=== PATIENT | male | born 1970 | race Caucasian/White ===

== ENCOUNTER 2021-11-22 21:45 | Observation (INO) ==
[2021-11-22 22:17] LABS: Basophils # (auto) 0.04 K/uL (0-0.2); Basophils % (auto) 0.6 %; Eosinophils # (auto) 0.35 K/uL (0-0.50); Eosinophils % (auto) 5.2 %; Hematocrit (blood only) 37.3 % (40.1-51.0); Hemoglobin 12.6 g/dl (14.0-18.0); Immature Granulocytes # (auto) 0.01 K/uL (0.00-0.02); Immature Granulocytes % (auto) 0.1 %; Lymphocytes # (auto) 2.34 K/uL (1.2-3.4); Mean Corpuscular Hemoglobin 29.1 pg (25.0-34.0); Mean Corpuscular Hgb Conc 33.8 g/dL (32.0-36.0); Mean Corpuscular Volume 86.1 fL (80.0-100.0); Mean Platelet Volume 10.2 fL (9.4-12.4); Monocytes # (auto) 0.64 K/uL (0.24-0.82); Monocytes % (auto) 9.6 %; Neutrophils # (auto) 3.31 K/uL (1.4-6.5); Neutrophils % (auto) 49.5 %; Platelet Count 261 K/uL (130-400); RDW Coefficient of Variation 12.5 % (11.5-14.5); RDW Standard Deviation 39.3 fL (36.4-46.3); Red Blood Count 4.33 M/uL (4.63-6.08); White Blood Count 6.69 K/ul (4.8-10.8)
[2021-11-22 22:32] LABS: Partial Thromboplastin Ratio 0.9; Partial Thromboplastin Time 25.7 Seconds (21.0-31.0)
[2021-11-22 22:36] LABS: Alanine Aminotransferase 11 U/L (7-52); Albumin Globulin Ratio 1.5 (0.9-2); Albumin Level 4.2 gm/dl (3.4-5.0); Alkaline Phosphatase 58 U/L (34-104); Anion Gap 7 (3-11); Aspartate Aminotransferase 14 U/L (13-39); BUN Creatinine Ratio 11.8 (10-20); Bilirubin,Total 0.5 mg/dl (0.2-1.0); Blood Urea Nitrogen 11 mg/dl (6-23); Carbon Dioxide 28 mmol/L (21-32); Chloride 104 mmol/L (98-107); Creatinine Clr Calc Pharmacy 101.2 ml/min; Est GFR (African American) 110.6 ml/min; Est GFR (Non-African American) 95.4 ml/min; Globulin 2.8 gm/dl (2.5-4.0); Glucose 129 mg/dl (70-99(Fasting)); Potassium 3.8 mmol/L (3.5-5.1); Sodium 139 mmol/L (136-145)
[2021-11-22 22:43] LABS: Troponin I High Sensitivity < 2.3 pg/ml (0-20)
[2021-11-23] MEDS ORDERED: OPTIRAY 300 100mL IV ONE (01:25)
[2021-11-23] MEDS ORDERED: ACETAMINOPHEN 325 MG TAB PO PRN (06:13)
[2021-11-23] MEDS ORDERED: POLYETHYLENE (MIRALAX) 17 GM PACK PO PRN (06:13)
[2021-11-23] MEDS ORDERED: NITROGLYCERIN SL 0.4 MG/TAB TAB SL PRN (06:13)
[2021-11-23] MEDS ORDERED: ALBUTEROL HFA 8 GM INHALER INH PRN (06:26)
--- NOTE | 2021-11-23 06:33 | History and Physical Report ---
DATE OF ADMISSION: 11/23/2021. CHIEF COMPLAINT: Chest pain, dyspnea on exertion. HISTORY OF PRESENT ILLNESS: This is a 51-year-old male with past medical history significant for Crohn's disease, GERD, history of left duplicated ureter, history of alopecia areata, chronic pain, major depression. Presents with chest pain going on for last 2 days, pressure-like feeling, tonight it was 8/10, currently it is still about 5/10 in severity, no radiation, it is all over the chest, also in the upper abdomen. He is getting short of breath on exertion also for the last 2 days. No cough, no fevers, no headache. He has chronic neck pain. No runny nose, no sore throat, no cough, no fevers. Has some abdominal discomfort, some nausea. He has diarrhea for last the 2 days. He has had 3 to 4 episodes of diarrhea. No blood in the stools. Watery diarrhea. Normal bladder movements. No swelling in the legs. Climbing steps is making him short of breath for the last couple of days. ALLERGIES: CODEINE, NALOXONE, GABAPENTIN, IBUPROFEN, TRAMADOL. PAST MEDICAL HISTORY: As mentioned above. PAST SURGICAL HISTORY: Abdominal surgery, left shoulder arthroscopy, colonoscopy, multiple cystoscopies with bilateral stent removal, EGDs, fragment of kidney stone via shockwave on the left ureter, cholecystectomy, cervical spinal fusion surgery, lumbar spinal fusion surgery, upper GI endoscopy. MEDICATIONS: The patient is on Tylenol p.r.n., albuterol inhalation p.r.n. buprenorphine 8 mg sublingual t.i.d., famotidine 20 mg p.o. b.i.d., Protonix 40 mg p.o. daily. FAMILY HISTORY: Significant for mother has breast cancer; father had colon polyps and heart disorder; paternal grandfather had lung cancer; paternal grandmother has diabetes; uncle had colon cancer. SOCIAL HISTORY: , no smoking, no alcohol, no drug use. REVIEW OF SYSTEMS: As per HPI. Rest of the review of systems is negative. PHYSICAL EXAMINATION: GENERAL: The patient is of moderate build, not in acute distress. VITAL SIGNS: Temperature 36.2, pulse 55, respiratory rate 12, blood pressure 112/62, oxygen 98% on room air. HEENT: Pupils equal, round and reactive to light. Oral mucosa moist. NECK: No JVD, no neck masses. CARDIOVASCULAR: S1 and S2 heard. Regular rate and rhythm. No murmur, no gallop. RESPIRATORY SYSTEM: Normal AP diameter. No accessory muscle use. No wheezing, no crackles. ABDOMEN: Soft, bowel sounds present. Mild abdominal discomfort. No guarding, no rigidity, no distention. CENTRAL NERVOUS SYSTEM: Cranial nerves II-XII grossly intact, nonfocal. EXTREMITIES: No edema, no erythema. LABORATORY DATA: WBC 6.6, hemoglobin 12.6, hematocrit 37.3, platelets 261. PT 11, INR 1, APTT 25.7. Sodium 139, potassium 3.8, chloride 104, bicarb 28, BUN 11, creatinine 0.9, serum glucose 129, calcium 9, total bilirubin 0.5, AST 14, ALT 11, alkaline phosphatase 58. Troponin I high sensitivity less than 2.3, lipase 17. SARS-CoV-2 rapid test negative. IMAGING DATA: CT of abdomen and pelvis with IV contrast, no acute abnormality. Chest x-ray, no acute findings. EKG: Poor quality data, normal sinus rhythm at a rate of 60, no significant change was found. ASSESSMENT AND PLAN: This is a 51-year-old male who presents with chest pain and dyspnea on exertion. 1. Chest pain and dyspnea on exertion going on for the last 2 days and also some diarrhea for the last 2 days. Initial workup was unremarkable. Follow serial enzymes, echo, keep him n.p.o., and consult cardiology in the a.m. for further recommendations. 2. History of chronic pain: Continue his buprenorphine. 3. Gastroesophageal reflux disease: Also has some epigastric tenderness. Continue his home Pepcid and Protonix for now. 4. Deep venous thrombosis prophylaxis: Sequential compression devices. DISPOSITION: Observation in [place] tele. PT/OT prior to discharge. Social service to help with discharge planning. Job ID: [id number] [facility]
[2021-11-23 06:57] LABS: Basophils # (auto) 0.04 K/uL (0-0.2); Basophils % (auto) 0.7 %; Eosinophils # (auto) 0.49 K/uL (0-0.50); Eosinophils % (auto) 8.1 %; Hematocrit (blood only) 37.2 % (40.1-51.0); Hemoglobin 12.1 g/dl (14.0-18.0); Immature Granulocytes # (auto) 0.01 K/uL (0.00-0.02); Immature Granulocytes % (auto) 0.2 %; Lymphocytes # (auto) 2.66 K/uL (1.2-3.4); Lymphocytes % (auto) 43.9 %; Mean Corpuscular Hemoglobin 28.2 pg (25.0-34.0); Mean Corpuscular Hgb Conc 32.5 g/dL (32.0-36.0); Mean Corpuscular Volume 86.7 fL (80.0-100.0); Mean Platelet Volume 10.1 fL (9.4-12.4); Monocytes % (auto) 9.9 %; Neutrophils # (auto) 2.26 K/uL (1.4-6.5); Neutrophils % (auto) 37.2 %; Platelet Count 234 K/uL (130-400); RDW Coefficient of Variation 12.7 % (11.5-14.5); Red Blood Count 4.29 M/uL (4.63-6.08); White Blood Count 6.06 K/ul (4.8-10.8)
[2021-11-23 07:26] LABS: Troponin I High Sensitivity < 2.3 pg/ml (0-20)
[2021-11-23 07:32] LABS: D Dimer 280 ug/L FEU (0-500)
[2021-11-23 07:36] LABS: Anion Gap 5 (3-11); BUN Creatinine Ratio 11.2 (10-20); Blood Urea Nitrogen 10 mg/dl (6-23); Calcium 8.9 mg/dl (8.5-10.1); Carbon Dioxide 30 mmol/L (21-32); Chloride 103 mmol/L (98-107); Creatinine Clr Calc Pharmacy 105.8 ml/min; Est GFR (African American) 115.6 ml/min; Est GFR (Non-African American) 99.7 ml/min; Glucose 89 mg/dl (70-99(Fasting)); Magnesium 2.2 mg/dl (1.7-2.4); Potassium 3.6 mmol/L (3.5-5.1); Sodium 138 mmol/L (136-145)
--- NOTE | 2021-11-23 07:37 | XRay Report ---
XR chest 1V portable CLINICAL HISTORY: Chest Pain TECHNIQUE: Single frontal radiograph of the chest was obtained. Comparison: Comparison is made to chest radiograph 05/13/2014 FINDINGS: Anterior cervical fixation hardware is seen. The cardiomediastinal silhouette is normal. The lungs ar e clear. No evidence of pleural effusion or pneumothorax. IMPRESSION: No acute chest disease. ACT 112: Negative or not required by law. Electronically signed by: Sukh Garcia M.D. 11/23/2021 7:36 AM
--- NOTE | 2021-11-23 08:17 | CT Scan Report ---
CT abd pelvis IV con only CLINICAL HISTORY: epigastric pain TECHNIQUE: Helical axial images of the abdomen and pelvis were obtained and displayed. Automated dose lowering techniques and/or adjustment according to patient size were utilized for this exam. This e xam was performed with intravenous contrast. CT DOSE: 415.85 mGy.cm COMPARISON: Comparison is made to CT abdomen pelvis 07/30/2014 FINDINGS: Lower chest: Bibasilar atelectasis versus scarring is seen. Liver: Unremarkable. No focal lesions are seen. Gallbladder and biliary tree: Patient is status post cholecystectomy. Physiologic prominence of the b iliary ducts is noted. Pancreas: Unremarkable, no focal lesions. Spleen: Unremarkable. Adrenals: Unremarkable. Kidneys and ureters: Incidental note is made of a duplicated renal collecting system on the left. Bladder: Unremarkable. Reproductive organs: Unremarkable. Bowel: Unremarkable appearance of the bowel. The appendix is normal. A hiatal hernia is seen. Lymph nodes Retroperitoneal: Unremarkable. Pelvic: Unremarkable. Mesenteric: Unremarkable. Peritoneum: Normal. Vessels: Unremarkable. Abdominal wall: Bilateral fat-containing inguinal hernias are seen. Bones: Posterior fixation hardware is seen spanning L4-L5. Multilevel degenerative changes are seen. IMPRESSION: No acute abnormalities are seen to explain epigastric pain. There is a small hiatal hernia. ACT 112: Negative or not required by law. Electronically signed by: Sukh Garcia M.D. 11/23/2021 8:15 AM
--- NOTE | 2021-11-23 08:57 | Emergency Department Note ---
Impression & Plan Substernal chest pain, Exertional shortness of breath [facility] Provider Note NAME: CAT VAN AGE: 51 SEX: M ARRIVES VIA: Walk-In INFORMANT: Patient and his ED PROVIDER(S): Shania Le DO CHIEF COMPLAINT: Diffuse chest pain and shortness of breath PLAN: Disposition: The [facility] Condition: Stable MEDICAL DECISION MAKING: This is a 51-year-old male patient who presents to the emergency department with diffuse chest pain and exertional shortness of breath. On physical exam, the patient had reproducible epigastric pain. CT scan of the abdomen/pelvis was es sentially unremarkable. Patient gives a very specific history of worsening exertional shortness of breath. EKG and laboratory studies were unremarkable but the patient's history was quite concerning. I discussed the case with [facility] and they will evaluate for further management and work-up. O2 saturations remained stable. Triage Nursing notes reviewed and agree with them. Additional history obtained from the patient's is at the bedside Vital Signs: reviewed and unremarkable Differential diagnosis: Pancreatitis, cardiac ischemia, cardiac dysrhythmia, COVID-19, anemia Diagnostics interpreted by me: ECG: Sinus rhythm at a rate of [address] segment elevations or signs of ischemia. No ectopy. Cardiac Monitoring: Sinus bradycardia at 52 Laboratory studies: See below Imaging studies: As per stat rad CT abdomen pelvis with contrast: No acute abnormality. No bowel obstruction or ileus. No evidence for appendicitis. No evidence for diverticulitis. No free fluid. Liver is unremarkable. Gallbladder not identified. No biliary ductal dilatation. Pancreas is unremarkable. Spleen is unremarkable. No obstructive uropathy. Kidneys are unremarkable. Urinary bladder is unremarkable. Postoperative degenerative changes of the lumbar spine Portable chest x-ray: As per my interpretation no acute pulmonary infiltrates or consolidations. HPI: 51/M arrives for evaluation of diffuse chest pain and shortness of breath. Patient has been feeling increasing chest discomfort across his chest over the past couple of days and worsening shortness of breath and lightheadedness. Last evening, the patient developed severe epigastric discomfort for the approximately 1 hour which was concerning to him. ROS: See above HPI for pertinent positives & negatives. A total of 10 systems reviewed and were otherwise negative. PAST MEDICAL HISTORY:GERD; multiple back and neck surgeries. The patient had COVID-19 in April and has been vaccinated PAST SURGICAL HISTORY:None FAMILY HISTORY:His father has hypertension and his mother has atrial fibrillation SOCIAL HISTORY:No significant alcohol use HOME MEDICATIONS:See list ALLERGIES:See list VITALS:See Below PHYSICAL EXAMINATION: HEENT: Head - normocephalic and atraumatic Pupils are equal, round, and reactive to light. Extraocular eye muscles are intact, and sclera are anicteric. Nose - moist nasal mucosa without discharge. Mouth - moist buccal mucosa. Oropharynx is nonerythematous and there is no tonsillar exudate or edema noted. Neck: Supple; no JVD, nuchal rigidity, cervical lymphadenopathy, or auscultated bruits. Heart: Bradycardic rate and regular rhythm. There is a normal S1 and S2 with no murmurs, clicks, or gallops appreciated. Lungs: Clear to auscultation bilaterally with no wheezes, rales, or rhonchi. Abdomen: Soft, mildly distended with moderate tenderness to palpation in the epigastrium, with good bowel sounds. There are no palpable pulsatile masses or hepatosplenomegaly. There is no guarding, rigidity, or rebound noted. Extremities: No evidence of cyanosis, clubbing, or edema. There are easily palpable peripheral pulses. Skin: warm and dry with good turgor and no rashes. ED COURSE: Times/Reassessments: 0020: The patient was evaluated in room C6. A complete history and physical was performed. An IV lock was initiated and labs were drawn as above. A twelve-lead EKG was obtained as described above. An order was placed for continuous cardiac monitoring. The patient was in a sinus bradycardia at a rate of 52. A portable chest x-ray was performed. The patient went for CT scan of the abdomen/pelvis which was unremarkable. I [facility] the [facility] and they will evaluate for further management. Shania Le DO Past Med/Surg History Medical History (Updated 11/23/21 @ 16:16 by Shania Le DO) Chronic back pain subutex for pain control Degenerative disc disease Eye pain Left eye pain (11/2019) > s/p unremarkable brain MRI > referred to eye doctor for further management GERD (gastroesophageal reflux disease) Hx of duodenal ulcer ~2004, no surgical intervention Kidney stones hx Osteoarthritis Ureteral duplication, left congenital 2 ureters (left side) Surgical History History of colonoscopy History of cystoscopy with stone basketing/stent History of esophagogastroduodenoscopy (EGD) History of lithotripsy S/P arthroscopy of left shoulder RCR x3 S/P cervical spinal fusion Multilevel x2 ([facility]) > "Full ROM" S/P epidural steroid injection S/P hip arthroscopy Right hip S/P lumbar spinal fusion S/P tendon repair left bicep tendon repair Family History Other No family history of adverse response to anesthesia Social History Smoking Status: Never smoker Second Hand Exposure: No; Do You Dip or Chew Tobacco: No; Tobacco Cessation Education Requested by Patient: No Hx Alcohol Use: No Hx Substance Use: No Preferred Language: Setswana Communication Ability: Effective Storekeeper Helper Required: No Beliefs That Will Affect Care: None Current Living Situation: Significant Other Current Living Situation Comment: House with chichi Jackelin Other Information That Helps Us Care for You: No Feels Safe at Home: Yes Safety Concerns: Feels Safe At This Time Assistive Devices: None Allergies Allergies Allergy/AdvReac Type Severity Reaction Status Date / Time codeine Allergy Severe Anaphylaxis Verified 11/23/21 00:08 naloxone [From Suboxone] Allergy Severe Anaphylaxis Verified 11/23/21 00:08 (see comments) gabapentin AdvReac Intermediate Vomiting, Verified 11/23/21 00:08 diarrhea ibuprofen AdvReac Intermediate Nausea/Vomi Verified 11/23/21 00:08 ting tramadol [From Ultram] AdvReac Intermediate Nausea/Vomi Verified 11/23/21 00:08 ting Home Meds Home Medications Medication Instructions Recorded Confirmed albuterol sulfate 90 mcg/actuation 1 inh inhalation QID PRN Wheezing 05/30/20 11/23/21 breath activated powder inhaler buprenorphine HCl 8 mg sublingual 8 mg sublingual TID 05/30/20 11/23/21 tablet famotidine 20 mg tablet (Pepcid) 20 mg PO BID 05/30/20 11/23/21 pantoprazole 40 mg tablet,delayed 40 mg PO QAM 05/30/20 11/23/21 release (Protonix) acetaminophen 500 mg tablet 1,000 mg PO Q6H PRN Pain 11/23/21 11/23/21 (Tylenol Extra Strength) ibuprofen 200 mg tablet 400 mg PO Q6H PRN Pain 11/23/21 11/23/21 Results & Data (ED) Vital Signs Vital Signs - 24 hr 11/22/21 21:46 11/23/21 00:07 11/23/21 00:07 Temperature 36.2 C L Temperature Source Temporal Artery Scan Pulse Rate 63 Pulse Rate from SpO2 Sensor Respiratory Rate 18 Respiratory Effort / Characteristics Non-Labored Spontaneous Respiratory Depth Normal Blood Pressure 121/71 Blood Pressure Mean 87 Blood Pressure Position Sitting Pulse Oximetry 98 Oxygen Delivery Method Room Air Room Air Room Air Sepsis Recent Fever Within 48 Hours No Sepsis New/Unexplained Change in Mental Status N/A Sepsis Action Taken by Nursing No Action Required 11/23/21 00:00 11/23/21 01:00 11/23/21 01:26 Temperature Temperature Source Pulse Rate 50 L 60 59 L Pulse Rate from SpO2 Sensor Respiratory Rate 12 13 11 L Respiratory Effort / Characteristics Respiratory Depth Blood Pressure 105/68 128/77 122/78 Blood Pressure Mean 80 94 92 Blood Pressure Position Pulse Oximetry 97 97 97 Oxygen Delivery Method Room Air Room Air Room Air Sepsis Recent Fever Within 48 Hours Sepsis New/Unexplained Change in Mental Status Sepsis Action Taken by Nursing 11/23/21 03:00 11/23/21 04:00 Temperature Temperature Source Pulse Rate 55 L 51 L Pulse Rate from SpO2 Sensor 54 L 50 L Respiratory Rate 12 13 Respiratory Effort / Characteristics Respiratory Depth Blood Pressure 112/69 97/58 L Blood Pressure Mean 83 71 Blood Pressure Position Pulse Oximetry 98 98 Oxygen Delivery Method Sepsis Recent Fever Within 48 Hours Sepsis New/Unexplained Change in Mental Status Sepsis Action Taken by Nursing Laboratory Data Result diagrams: 11/23/21 06:35 11/23/21 06:35 Lab Results 11/22/21 11/22/21 11/22/21 Range/Units 21:58 21:58 21:58 WBC 6.69 (4.8-10.8) K/ul RBC 4.33 L (4.63-6.08) M/uL Hgb 12.6 L (14.0-18.0) g/dl Hct 37.3 L (40.1-51.0) % MCV 86.1 (80.0-100.0) fL MCH 29.1 (25.0-34.0) pg MCHC 33.8 (32.0-36.0) g/dL RDW Std Deviation 39.3 (36.4-46.3) fL RDW Coeff of [place] 12.5 (11.5-14.5) % Plt Count 261 (130-400) K/uL MPV 10.2 (9.4-12.4) fL Immature Gran % (Auto) 0.1 % Neut % (Auto) 49.5 % Lymph % (Auto) 35.0 % [place] % (Auto) 9.6 % Eos % (Auto) 5.2 % Baso % (Auto) 0.6 % Neut # (Auto) 3.31 (1.4-6.5) K/uL Lymph # (Auto) 2.34 (1.2-3.4) K/uL [place] # (Auto) 0.64 (0.24-0.82) K/uL Eos # (Auto) 0.35 (0-0.50) K/uL Baso # (Auto) 0.04 (0-0.2) K/uL Immature Gran # (Auto) 0.01 (0.00-0.02) K/uL PT 11.0 (9.0-12.0) Seconds INR 1.0 (0.9-1.1) APTT 25.7 (21.0-31.0) Seconds PTT Ratio 0.9 Sodium 139 (136-145) mmol/L Potassium 3.8 (3.5-5.1) mmol/L Chloride 104 (98-107) mmol/L Carbon Dioxide 28 (21-32) mmol/L Anion Gap 7 (3-11) BUN 11 (6-23) mg/dl Creatinine 0.93 (0.6-1.4) mg/dl Est Cr Clr Drug Dosing 101.2 ml/min Est GFR ( Amer) 110.6 ml/min Est GFR (Non-Af Amer) 95.4 ml/min BUN/Creatinine Ratio 11.8 (10-20) Glucose 129 H (70-99(Fasting)) mg/dl Calcium 9.0 (8.5-10.1) mg/dl Total Bilirubin 0.5 (0.2-1.0) mg/dl AST 14 (13-39) U/L ALT 11 (7-52) U/L Alkaline Phosphatase 58 (34-104) U/L Troponin I High Sens < 2.3 (0-20) pg/ml Total Protein 7.0 (6.0-8.3) gm/dl Albumin 4.2 (3.4-5.0) gm/dl Globulin 2.8 (2.5-4.0) gm/dl Albumin/Globulin Ratio 1.5 (0.9-2) Lipase (11-82) U/L SARS-CoV-2, RNA, NAAT (NEGATIVE) 11/22/21 11/23/21 Range/Units 21:58 03:40 WBC (4.8-10.8) K/ul RBC (4.63-6.08) M/uL Hgb (14.0-18.0) g/dl Hct (40.1-51.0) % MCV (80.0-100.0) fL MCH (25.0-34.0) pg MCHC (32.0-36.0) g/dL RDW Std Deviation (36.4-46.3) fL RDW Coeff of [place] (11.5-14.5) % Plt Count (130-400) K/uL MPV (9.4-12.4) fL Immature Gran % (Auto) % Neut % (Auto) % Lymph % (Auto) % [place] % (Auto) % Eos % (Auto) % Baso % (Auto) % Neut # (Auto) (1.4-6.5) K/uL Lymph # (Auto) (1.2-3.4) K/uL [place] # (Auto) (0.24-0.82) K/uL Eos # (Auto) (0-0.50) K/uL Baso # (Auto) (0-0.2) K/uL Immature Gran # (Auto) (0.00-0.02) K/uL PT (9.0-12.0) Seconds INR (0.9-1.1) APTT (21.0-31.0) Seconds PTT Ratio Sodium (136-145) mmol/L Potassium (3.5-5.1) mmol/L Chloride (98-107) mmol/L Carbon Dioxide (21-32) mmol/L Anion Gap (3-11) BUN (6-23) mg/dl Creatinine (0.6-1.4) mg/dl Est Cr Clr Drug Dosing ml/min Est GFR ( Amer) ml/min Est GFR (Non-Af Amer) ml/min BUN/Creatinine Ratio (10-20) Glucose (70-99(Fasting)) mg/dl Calcium (8.5-10.1) mg/dl Total Bilirubin (0.2-1.0) mg/dl AST (13-39) U/L ALT (7-52) U/L Alkaline Phosphatase (34-104) U/L Troponin I High Sens (0-20) pg/ml Total Protein (6.0-8.3) gm/dl Albumin (3.4-5.0) gm/dl Globulin (2.5-4.0) gm/dl Albumin/Globulin Ratio (0.9-2) Lipase 17 (11-82) U/L SARS-CoV-2, RNA, NAAT NEGATIVE (NEGATIVE) Administered Medications Discontinued Medications Buprenorphine HCl (Buprenorphine Hcl 8 Mg Subl) 8 mg SL TID [facility] Stop: 12/23/21 08:59 Last Admin: 11/23/21 09:08 Dose: 8 mg Documented By: DOLLY Famotidine (Famotidine 20 Mg Tab) 20 mg PO BID [facility] Stop: 12/23/21 08:59 Last Admin: 11/23/21 09:08 Dose: 20 mg Documented By: DOLLY Ioversol (Optiray 300 100ml) 100 ml IV ONCE ONE Stop: 11/23/21 01:26 Last Admin: 11/23/21 01:25 Dose: 100 ml Documented By: FRANCESCO Pantoprazole Sodium (Pantoprazole 40 Mg Tab) 40 mg PO QAM [facility] Stop: 12/23/21 08:59 Last Admin: 11/23/21 09:08 Dose: 40 mg Documented By: DOLLY Imaging Data Radiologist's Impression: Chest X-Ray 11/22/21 21:49 XR chest 1V portable CLINICAL HISTORY: Chest Pain TECHNIQUE: Single frontal radiograph of the chest was obtained. Comparison: Comparison is made to chest radiograph 05/13/2014 FINDINGS: Anterior cervical fixation hardware is seen. The cardiomediastinal silhouette is normal. The lungs are clear. No evidence of pleural effusion or pneumothorax. IMPRESSION: No acute chest disease. ACT 112: Negative or not required by law. Electronically signed by: Sukh Garcia M.D. 11/23/2021 7:36 AM Abdomen/Pelvis CT 11/23/21 00:59 CT abd pelvis IV con only CLINICAL HISTORY: epigastric pain TECHNIQUE: Helical axial images of the abdomen and pelvis were obtained and displayed. Automated dose lowering techniques and/or adjustment according to patient size were utilized for this exam. This exam was performed with intravenous contrast. CT DOSE: 415.85 mGy.cm COMPARISON: Comparison is made to CT abdomen pelvis 07/30/2014 FINDINGS: Lower chest: Bibasilar atelectasis versus scarring is seen. Liver: Unremarkable. No focal lesions are seen. Gallbladder and biliary tree: Patient is status post cholecystectomy. Physio logic prominence of the biliary ducts is noted. Pancreas: Unremarkable, no focal lesions. Spleen: Unremarkable. Adrenals: Unremarkable. Kidneys and ureters: Incidental note is made of a duplicated renal collecting system on the left. Bladder: Unremarkable. Reproductive organs: Unremarkable. Bowel: Unremarkable appearance of the bowel. The appendix is normal. A hiatal hernia is seen. Lymph nodes Retroperitoneal: Unremarkable. Pelvic: Unremarkable. Mesenteric: Unremarkable. Peritoneum: Normal. Vessels: Unremarkable. Abdominal wall: Bilateral fat-containing inguinal hernias are seen. Bones: Posterior fixation hardware is seen spanning L4-L5. Multilevel degenerative changes are seen. IMPRESSION: No acute abnormalities are seen to explain epigastric pain. There is a small hiatal hernia. ACT 112: Negative or not required by law. Electronically signed by: Sukh Garcia M.D. 11/23/2021 8:15 AM Discharge Plan Visit Data Chief Complaint: Chest Pain Stated Complaint: CHEST PAIN, SOB ED Provider: Shania Le Discharge Problem: Substernal chest pain, Exertional shortness of breath Patient Disposition: Admitted As Inpatient Condition: Good Discharge Instructions Interventions: ED Discharge Assessment Last Done: 11/23/21 05:37
[2021-11-23] MEDS ORDERED: buprenorphine HCL 8 MG SUBL SL SCH (09:00)
[2021-11-23] MEDS ORDERED: FAMOTIDINE 20 MG TAB PO SCH (09:00)
[2021-11-23] MEDS ORDERED: PANTOprazole 40 MG TAB PO SCH (09:00)
--- NOTE | 2021-11-23 09:05 | Cardiology Consultation ---
Date of Consultation November 23, 2021 Assessment & Plan (1) Atypical chest pain: (2) Sinus bradycardia: Plan 51-year-old patient presents with atypical chest discomfort. Cardiac enzymes within normal limits. ECG without ischemic changes. Bedside 2D transthoracic echocardiogram within normal limits. No evidence of pericardial effusion. Discussed inpatient versus outpatient stress testing for further restratification. Patient prefers to follow-up in the outpatient setting. We will arrange for stress testing at the [facility]. Thank you for allowing to participate in the care of your patient. History of Present Illness Reason for Consultation: chest pain Requesting Physician: Dr. Deshpande Attending Physician: Nishant Sutton MD History of Present Illness 51-year-old patient admitted with chest pain. Describes epigastric discomfort radiating to his chest over the past 48 hours. Discomfort occurring at rest and when lying supine. Notes diarrhea as well over the past 48 hours. Carries a history of colitis. Denies exertional chest pain or unusual shortness of breath. No orthopnea, PND, or lower extremity edema. Denies personal history of coronary disease, congestive heart failure, or rheumatic fever as a child. Allergies Allergy/AdvReac Type Severity Reaction Status Date / Time codeine Allergy Severe Anaphylaxis Verified 11/23/21 00:08 naloxone [From Suboxone] Allergy Severe Anaphylaxis Verified 11/23/21 00:08 (see comments) gabapentin AdvReac Intermediate Vomiting, Verified 11/23/21 00:08 diarrhea ibuprofen AdvReac Intermediate Nausea/Vomi Verified 11/23/21 00:08 ting tramadol [From Ultram] AdvReac Intermediate Nausea/Vomi Verified 11/23/21 00:08 ting Home Medications Medication Instructions Recorded Confirmed Type albuterol sulfate 90 mcg/actuation 1 inh inhalation QID PRN Wheezing 05/30/20 11/23/21 History breath activated powder inhaler buprenorphine HCl 8 mg sublingual 8 mg sublingual TID 05/30/20 11/23/21 History tablet famotidine 20 mg tablet (Pepcid) 20 mg PO BID 05/30/20 11/23/21 History pantoprazole 40 mg tablet,delayed 40 mg PO QAM 05/30/20 11/23/21 History release (Protonix) acetaminophen 500 mg tablet 1,000 mg PO Q6H PRN Pain 11/23/21 11/23/21 History (Tylenol Extra Strength) ibuprofen 200 mg tablet 400 mg PO Q6H PRN Pain 11/23/21 11/23/21 History Patient History Medical History Chronic back pain subutex for pain control Degenerative disc disease Eye pain Left eye pain (11/2019) > s/p unremarkable brain MRI > referred to eye doctor for further management GERD (gastroesophageal reflux disease) Hx of duodenal ulcer ~2004, no surgical intervention Kidney stones hx Osteoarthritis Ureteral duplication, left congenital 2 ureters (left side) Surgical History History of colonoscopy History of cystoscopy with stone basketing/stent History of esophagogastroduodenoscopy (EGD) History of lithotripsy S/P arthroscopy of left shoulder RCR x3 S/P cervical spinal fusion Multilevel x2 ([facility]) > "Full ROM" S/P epidural steroid injection S/P hip arthroscopy Right hip S/P lumbar spinal fusion S/P tendon repair left bicep tendon repair Family History Other No family history of adverse response to anesthesia Social History Smoking Status: Never smoker Second Hand Exposure: No; Do You Dip or Chew Tobacco: No; Tobacco Cessation Education Requested by Patient: No Hx Alcohol Use: No Hx Substance Use: No Preferred Language: [place] Communication Ability: Effective 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: No Beliefs That Will Affect Care: None Current Living Situation: Significant Other Current Living Situation Comment: House with chichi Jackelin Other Information That Helps Us Care for You: No Feels Safe at Home: Yes Safety Concerns: Feels Safe At This Time Assistive Devices: None Review of Systems Review of Systems: All systems reviewed & are unremarkable except as noted in Subjective Physical Exam Constitutional: well nourished; no acute distress Respiratory: no respiratory distress, no labored breathing and no retractions Auscultation: lungs clear to auscultation bilaterally; no crackles, no rales, no rhonchi and no wheezes Cardiovascular: Rate/Rhythm: regular rate and regular rhythm Heart Sounds: normal S1 and normal S2; no murmur Vessels: radial pulses present; no JVD and no carotid bruit Extremities: no edema Gastrointestinal (Abdomen): Inspection/Auscultation: abdomen normal to inspection; abdomen not distended Percussion/Palpation: abdomen soft; abdomen nontender, no guarding and abdomen not rigid Neurologic: CN's II-XI intact bilaterally and moves all extremities; no focal motor deficits Results & Data ([facility]) Vital Signs (Past 12 Hours) Vital Signs Temp Pulse Resp BP BP Pulse Ox O2 Del Method 11/23/21 08:07 20 99/57 L 97 Room Air 11/23/21 07:30 47 L 11/23/21 07:24 53 L 11/23/21 06:30 53 L 11/23/21 06:30 Room Air 11/23/21 05:00 57 L 12 119/63 98 11/23/21 04:00 51 L 13 97/58 L 98 11/23/21 03:00 55 L 12 112/69 98 11/23/21 01:26 59 L 11 L 122/78 97 Room Air 11/23/21 01:00 60 13 128/77 97 Room Air 11/23/21 00:00 50 L 12 105/68 97 Room Air 11/23/21 00:07 Room Air 11/23/21 00:07 Room Air 11/22/21 21:46 36.2 C L 63 18 121/71 98 Room Air Diagnostic Findings Exercise stress echo report 11/26/2019: The examination is adequate to evaluate the referral indication. The stress echo is negative for inducible ischemia. A high workload of 9 minutes, 10 METs was achieved. No significant valvular heart disease was noted on the resting study.
--- NOTE | 2021-11-23 10:31 | Electrocardiogram Report ---
Test Reason : Blood Pressure : / mmHG Vent. Rate : 060 BPM Atrial Rate : 060 BPM P-R Int : 150 ms QRS Dur : 082 ms QT Int : 416 ms P-R-T Axes : 047 062 061 degrees QTc Int : 416 ms Poor data quality, interpretation may be adversely affected Normal sinus rhythm Normal ECG When compared with ECG of 13-MAY-2014 09:22, No significant change was found Confirmed by Tone Lopez ([id number]) on 11/23/2021 10:30:44 AM Referred By: REFERRED SELF Confirmed By:Tone Lopez
--- NOTE | 2021-11-23 12:50 | Hospitalist Progress Note ---
Date of Service November 23, 2021 Assessment & Plan (1) Atypical chest pain: Plan: Admitted with chest pain and dyspnea on exertion for the last 2 days No significant family history of heart disease and has had a negative stress test 2 years ago EKG and serial cardiac enzymes are unremarkable for any ACS Echo of the heart showed EF of 60 to 65%, LV wall motion is normal, normal LV relaxation and there is mild mitral regurgitation Appreciate cardiology input and recommendation for an outpatient stress test Patient remains free from any symptoms and will be discharged home this afternoon (2) Sinus bradycardia: Plan: Heart rate remains at around 50s Not on any beta-blockers (3) GERD (gastroesophageal reflux disease): Plan: Continue Protonix No acute issues (4) Chronic back pain: Plan: Continue buprenorphine as advised Plan Will be discharged home this afternoon Admission and Anticipated Discharge Date Admission Date: November 23, 2021 Subjective 11/23/2021 The patient was seen and examined in medical telemetry unit He was admitted with chest pain and he does not have any evidence of ACS Denies any more chest pain as of now He denies any other symptom Review of Systems Review of Systems: All systems reviewed and are unremarkable except as noted below Cardiovascular: Additional Comments: No chest pain and/or palpitation Physical Exam Physical Exam: Lying in bed comfortably Constitutional: well developed, well nourished and average body habitus; not ill appearing Eyes: PERRL, conjunctivae normal, anicteric sclerae ENMT: external ear and nose normal, oropharynx normal Neck: trachea midline, no thyromegaly Respiratory: no respiratory distress Auscultation: lungs clear to auscultation bilaterally Cardiovascular: Rate/Rhythm: regular rate and regular rhythm; not tachycardic Heart Sounds: normal S1 and normal S2; no murmur Extremities: no edema Gastrointestinal (Abdomen): Inspection/Auscultation: normal bowel sounds; abdomen not distended Percussion/Palpation: abdomen soft; abdomen nontender Musculoskeletal: No acute arthritis in any joint Neurologic: normal touch/pain/proprioception and moves all extremities; no focal motor deficits Psychiatric: A+Ox3, euthymic affect Lymphatic: no cervical or axillary lymphadenopathy Results & Data Results & Data ([facility]) Vital Signs (Past 12 Hours) Vital Signs Pulse Pulse Resp BP BP BP Pulse Ox 11/23/21 11:35 50 L 20 100/63 97 11/23/21 08:07 20 99/57 L 97 11/23/21 07:30 47 L 11/23/21 07:24 53 L 11/23/21 06:30 53 L 11/23/21 06:30 11/23/21 05:00 57 L 12 119/63 98 11/23/21 04:00 51 L 13 97/58 L 98 11/23/21 03:00 55 L 12 112/69 98 11/23/21 01:26 59 L 11 L 122/78 97 11/23/21 01:00 60 13 128/77 97 O2 Del Method 11/23/21 11:35 Room Air 11/23/21 08:07 Room Air 11/23/21 07:30 11/23/21 07:24 11/23/21 06:30 11/23/21 06:30 Room Air 11/23/21 05:00 11/23/21 04:00 11/23/21 03:00 11/23/21 01:26 Room Air 11/23/21 01:00 Room Air Laboratory Results Short CBC 11/22/21 11/23/21 Range/Units 21:58 06:35 WBC 6.69 6.06 (4.8-10.8) K/ul Hgb 12.6 L 12.1 L (14.0-18.0) g/dl Hct 37.3 L 37.2 L (40.1-51.0) % Plt Count 261 234 (130-400) K/uL BMP 11/22/21 11/23/21 21:58 06:35 Sodium 139 138 Potassium 3.8 3.6 Chloride 104 103 Carbon Dioxide 28 30 BUN 11 10 Creatinine 0.93 0.89 Glucose 129 H 89 Calcium 9.0 8.9 Liver Function 11/22/21 Range/Units 21:58 Total Bilirubin 0.5 (0.2-1.0) mg/dl AST 14 (13-39) U/L ALT 11 (7-52) U/L Alkaline Phosphatase 58 (34-104) U/L Albumin 4.2 (3.4-5.0) gm/dl Medications Administered Current Inpatient Medications Acetaminophen (Acetaminophen 325 Mg Tab) 650 mg PO Q4H PRN PRN Reason: Pain or Fever Stop: 12/23/21 06:12 Albuterol (Albuterol Hfa 8 Gm Inhaler) 1 puffs INH QID PRN PRN Reason: Wheezing Stop: 12/23/21 06:25 Buprenorphine HCl (Buprenorphine Hcl 8 Mg Subl) 8 mg SL TID [facility] Stop: 12/23/21 08:59 Last Admin: 11/23/21 09:08 Dose: 8 mg Famotidine (Famotidine 20 Mg Tab) 20 mg PO BID [facility] Stop: 12/23/21 08:59 Last Admin: 11/23/21 09:08 Dose: 20 mg Nitroglycerin (Nitroglycerin Sl 0.4 Mg/Tab Tab) 0.4 mg SL UD PRN PRN Reason: Chest Pain Stop: 12/23/21 06:12 Pantoprazole Sodium (Pantoprazole 40 Mg Tab) 40 mg PO QAM [facility] Stop: 12/23/21 08:59 Last Admin: 11/23/21 09:08 Dose: 40 mg Polyethylene Glycol (Polyethylene (Miralax) 17 Gm Pack) 17 gm PO DAILY PRN PRN Reason: Constipation Stop: 12/23/21 06:12
--- NOTE | 2021-11-25 08:46 | Discharge Summary ---
Date of Service November 25, 2021 Admission Exam Per Admitting Provider GENERAL: The patient is of moderate build, not in acute distress. VITAL SIGNS: Temperature 36.2, pulse 55, respiratory rate 12, blood pressure 112/62, oxygen 98% on room air. HEENT: Pupils equal, round and reactive to light. Oral mucosa moist. NECK: No JVD, no neck masses. CARDIOVASCULAR: S1 and S2 heard. Regular rate and rhythm. No murmur, no gallop. RESPIRATORY SYSTEM: Normal AP diameter. No accessory muscle use. No wheezing, no crackles. ABDOMEN: Soft, bowel sounds present. Mild abdominal discomfort. No guarding, no rigidity, no distention. CENTRAL NERVOUS SYSTEM: Cranial nerves II-XII grossly intact, nonfocal. EXTREMITIES: No edema, no erythema. Principal Diagnosis Atypical chest pain Discharge Exam Lying in bed comfortably Constitutional well developed, well nourished and average body habitus; not ill appearing Eyes PERRL, conjunctivae normal, anicteric sclerae ENMT external ear and nose normal, oropharynx normal Neck trachea midline, no thyromegaly Respiratory no respiratory distress Auscultation: lungs clear to auscultation bilaterally Cardiovascular Rate/Rhythm: regular rate and regular rhythm; not tachycardic Heart Sounds: normal S1 and normal S2; no murmur Extremities: no edema Gastrointestinal (Abdomen) Inspection/Auscultation: normal bowel sounds; abdomen not distended Percussion/Palpation: abdomen soft; abdomen nontender Neurologic normal touch/pain/proprioception and moves all extremities; no focal motor deficits Psychiatric A+Ox3, euthymic affect Lymphatic no cervical or axillary lymphadenopathy Discharge Data Allergies Allergy/AdvReac Type Severity Reaction Status Date / Time codeine Allergy Severe Anaphylaxis Verified 11/23/21 00:08 naloxone [From Suboxone] Allergy Severe Anaphylaxis Verified 11/23/21 00:08 (see comments) gabapentin AdvReac Intermediate Vomiting, Verified 11/23/21 00:08 diarrhea ibuprofen AdvReac Intermediate Nausea/Vomi Verified 11/23/21 00:08 ting tramadol [From Ultram] AdvReac Intermediate Nausea/Vomi Verified 11/23/21 00:08 ting Consultations 11/23/21 03:28 ED Decision to Admit Stat 11/23/21 06:13 Consult Cardiology Routine Ordered Studies 11/23/21 00:59 CT Abd and Pelvis [CT abd pelvis IV con only] Urgent Hospital Course (1) Atypical chest pain: Admitted with chest pain and dyspnea on exertion for the last 2 days No significant family history of heart disease and has had a negative stress test 2 years ago EKG and serial cardiac enzymes are unremarkable for any ACS Echo of the heart showed EF of 60 to 65%, LV wall motion is normal, normal LV relaxation and there is mild mitral regurgitation Appreciate cardiology input and recommendation for an outpatient stress test Patient remains free from any symptoms and will be discharged home this afternoon (2) Sinus bradycardia: Heart rate remains at around 50s Not on any beta-blockers (3) GERD (gastroesophageal reflux disease): Continue Protonix No acute issues (4) Chronic back pain: Continue buprenorphine as advised Plan Will be discharged home this afternoon Total Time Total Time Spent Total Time Spent (In Minutes): 35 minutes Discharge Plan Discharge Items Patient Disposition: Home - Self-Care Reason For Visit: CHEST PAIN Discharge Diagnosis: Atypical chest pain Condition on Discharge: Good Activity: Resume your previous activity Non-emergency contact: Primary Care Provider Call non-emergency contact if: you have any medication questions Follow-up/Referrals: Blossom Bella DO [Primary Care Provider] - (Date & Time 11/27/2021 12:00 PM Provider Jose Luong DO Department [facility] ) Diet: Heart Healthy Addtl Attending Provider Instructions: Please take your medications as advised No change in new medications Try to avoid ibuprofen type medications and take Tylenol for pain Please keep appointments with your healthcare providers [facility] cardi[facility] will call with an appointment for a stress test Pending Studies at Discharge: No Stand-Alone Forms: My [facility] [employer], Smoking Cessation Medications and DC Order Prescriptions: Continued famotidine [Pepcid] 20 mg Tablet 20 mg PO BID pantoprazole [Protonix] 40 mg Tablet,Delayed Release (Dr/Ec) 40 mg PO QAM buprenorphine HCl 8 mg Tablet, Sublingual 8 mg SUBLINGUAL TID albuterol sulfate 90 mcg/actuation Aerosol Powdr Breath Activated 1 inh INHALATION QID PRN (Reason: Wheezing) acetaminophen [Tylenol Extra Strength] 500 mg Tablet 1,000 mg PO Q6H PRN (Reason: Pain) ibuprofen 200 mg Tablet 400 mg PO Q6H PRN (Reason: Pain) Discharge Orders: Discharge Order (Routine); Ordered 11/23/21 Ordered By: Nishant Sutton Admission Data Admit Date/Time: 11/23/21 04:38 Attending Provider: Nishant Sutton Admit Provider: Harley Deshpande Primary Care Provider: Blossom Bella Other Providers: Harley Deshpande ; Usama Schulte ; Misha Sierra ; Bharat Reyes ; Yohan Torres ; Carmelo Hussein ; Marcial Knight ; Betty Viera ; María Farah ; Ashley Santos ; Clif Montes Other Interventions: Discharge Summary Assessment (RN) Last Done: 11/23/21 13:27
== END 2021-11-23 14:14 | disposition home or self-care (01) ==
LOC: 2N 21:45 → ED 21:45 → 2N 11-23 05:37